=== PATIENT | male | born 1985 | race Caucasian/White ===

== ENCOUNTER → 2016-12-16 | Outpatient (CLI) | payer OTHER | END | disposition home or self-care (01) | LOC: CFH 11:59 | PROVIDERS: ATTEND Registered Nurse | DX: G40.211 Localization-related (focal) (partial) symptomatic epilepsy and epileptic syndromes with complex partial seizures, intractable, with status epilepticus (principal) | CPT/HCPCS: 70470 ==

== ENCOUNTER 2017-01-29 08:49 | Emergency (ER) | payer OTHER ==
[~2017-01-29] VITALS: Ht 182.9 cm; Wt 82.6 kg
[2017-01-29 08:51] VITALS: BP 149/80
[2017-01-29] MEDS ORDERED: HYDR-3144 PO (09:52)
[2017-01-29] MEDS ORDERED: PRED10TA PO (09:52)
[2017-01-29] MEDS ORDERED: LAMO25TA5 PO (09:52)
[2017-01-29] MEDS ORDERED: CLIN-60 PO (09:52)
[2017-01-29] MEDS ORDERED: ZONI100C2 PO (09:52)
== END 2017-01-29 11:09 | disposition home or self-care (01) ==
LOC: ED 10:13
DX: G40.909 Epilepsy, unspecified, not intractable, without status epilepticus (principal)
CPT/HCPCS: 36415; 70450; 82542

== ENCOUNTER 2017-04-15 14:38 | Emergency (ER) | payer OTHER ==
[~2017-04-15] VITALS: Ht 182.9 cm; Wt 82.2 kg
[~2017-04-15 14:38] MED LIST: CLIN-60 PO; HYDR-3144 PO; LAMO25TA5 PO; PRED10TA PO; ZONI100C2 PO
[2017-04-15] MEDS ORDERED: LORazepam 2 MG/ML, 1ML ONE (15:26)
[2017-04-15] MEDS ORDERED: KETOROLAC 30 MG/1 ML ONE (15:28)
[2017-04-15] MEDS ORDERED: LORazepam 2 MG/ML, 1ML IM ONE (15:30)
[2017-04-15] MEDS ORDERED: KETOROLAC 30 MG/1 ML IM ONE (15:30)
[2017-04-15 16:58] VITALS: BP 118/67
== END 2017-04-15 16:59 | disposition home or self-care (01) ==
LOC: ED 16:40
DX: S16.1XXA Strain of muscle, fascia and tendon at neck level, initial encounter (principal); G40.909 Epilepsy, unspecified, not intractable, without status epilepticus; Z87.891 Personal history of nicotine dependence; V49.9XXA Car occupant (driver) (passenger) injured in unspecified traffic accident, initial encounter; Y93.89 Activity, other specified; Y92.89 Other specified places as the place of occurrence of the external cause; Y99.8 Other external cause status
CPT/HCPCS: 70450; 72125; 96372; 99284; J1885; J2060